=== PATIENT | male | born 1945 | race Caucasian/White ===

== ENCOUNTER 2021-03-07 16:15 | Emergency (ER) | payer OTHER, MEDICARE, SELFPAY ==
[2021-03-07 16:49] VITALS: BP 183/93; PULSE 75; RESP 15; TEMP 36.8; O2SAT 98; BMI 32.2
[2021-03-07 18:42] VITALS: BP 175/83; PULSE 86; RESP 16; O2SAT 100
--- NOTE | 2021-03-07 18:47 | ED.EAR ---
HPI - Ear Problem General Chief complaint: Ear Stated complaint: think i have part of hearing aid stuck in ear. Time Seen by Provider: 03/07/21 18:32 Source: patient Mode of arrival: Ambulatory Limitations: no limitations History of Present Illness HPI Narrative: Patient is a 75-year-old male who presents with foreign body in his right ear for the last 4 days. He says a piece of his hearing aid got stuck. He is having some discomfort with it now. No drainage. No fevers. Slight decreased hearing. Related Data Allergies Allergy/AdvReac Type Severity Reaction Status Date / Time azathioprine Allergy Verified 03/07/21 16:49 Review of Systems Review of Systems Narrative: GENERAL: Denies chills,fever HEENT: See HPI RESPIRATORY: Denies dyspnea, cough, wheezing CARDIOVASCULAR: Denies chest pain, palpitations GASTROINTESTINAL: Denies nausea, vomiting MUSCULOSKELETAL: Denies extremity pain, injury SKIN: No rash, no laceration, no pruritus NEUROLOGIC: Denies weakness, dizziness, headache, numbness 8 point review of systems is negative except for those stated above and HPI Patient History Social History Smoking Status: Unknown if ever smoked Smoking Status: Unknown if ever smoked alcohol intake frequency: holidays/special occasions only Substance Use Type: does not use Exam Initial Vital Signs Initial Vital Signs: Vital Signs Temperature 98.3 F 03/07/21 16:49 Pulse Rate 75 03/07/21 16:49 Respiratory Rate 15 03/07/21 16:49 Blood Pressure 183/93 H 03/07/21 16:49 Pulse Oximetry 98 03/07/21 16:49 GENERAL: A well-appearing pleasant 75-year-old male EAR: Foreign body seen in right ear CARDIOVASCULAR: peripheral pulses in tact, cap refill <2 sec RESPIRATORY: No respiratory distress, speaks in full sentences without difficulty EXTREMITIES: Normal range of motion, no clubbing or edema. Neurovascularly intact NEUROLOGICAL: Cranial nerves II through XII grossly intact. Normal gait and speech. SKIN: Warm, dry, no petechiae, no rashes or lesions. Procedures Foreign Body EAR Location: ear canal (R) Foreign Body Suspected: other plastic (Hearing aid Piece) TM intact pre-procedure: unable to visualize Foreign Body Removal Technique: forceps Tympanic Membrane Intact Post Procedure: Yes Patient Tolerated Procedure: Well Course Vital Signs Vital signs: Vital Signs - 8 hr 03/07/21 18:42 Pulse Rate 86 Respiratory Rate 16 Blood Pressure 175/83 H Pulse Oximetry 100 Medical Decision Making MDM Narrative Medical decision making narrative: Or vomiting rate your easily removed with forceps. Tympanic membrane visualized afterwards, no erythema or sign of infection Discharge Plan Departure Patient Disposition: Home Clinical Impression: Acute foreign body of right ear Qualifiers: Encounter type: initial encounter Qualified Code(s): T16.1XXA - Foreign body in right ear, initial encounter Instructions: DI for Removal of Foreign Body From Ear Activity Restrictions/Additional Instructions: *You have been diagnosed with foreign body in ear *What to do: The hearing aid piece was easily removed. Please monitor for any pain or drainage which could be sign of infection but none is seen at this time. *Continue to take medications as directed *Follow up with your primary care provider in 2-3 days *Return to ER if you should have drainage, pain, fever, decreased hearing or any new, worsening or concerning symptoms
== END 2021-03-07 18:57 | disposition home or self-care (01) ==
PROVIDERS: Emergency Provider Emergency Medicine
DX: T16.1XXA Foreign body in right ear, initial encounter (principal); W45.8XXA Other foreign body or object entering through skin, initial encounter
CPT/HCPCS: 99281